=== PATIENT | female | born 1985 | race Caucasian/White ===

== ENCOUNTER 2017-03-14 23:35 | Emergency (ER) | payer OTHER ==
[2017-03-15 00:36] LABS: BASOPHILS % (AUTO) 1 % (0-3); EOSINOPHILS % (AUTO) 1 % (0-9); HEMATOCRIT 40 % (35-47); MEAN CORPUSCULAR VOLUME 86 fL (81-99); MONOCYTES % (AUTO) 6.2 % (0-12); NEUTROPHILS % (AUTO) 56.8 % (37-80)
[2017-03-15 00:47] VITALS: TEMP 96.4
[2017-03-15 00:56] LABS: ALBUMIN 3.6 gm/dl (3.4-5.0); ALT 21 IU/L (14-63); GLOM FILT RATE 71 mL/min (>60); POTASSIUM 3.4 mMol/L (3.5-5.1); SODIUM 140 mMol/L (136-145)
[2017-03-15] MEDS ORDERED: ALPRAZOLAM 0.25 MG TAB ONE (01:41)
[2017-03-15] MEDS ORDERED: ALPRAZOLAM 0.25 MG TAB PO SCH (01:45)
[2017-03-15 02:18] VITALS: O2SAT 99
[2017-03-15 02:21] VITALS: BP 127/83; PULSE 77; RESP 17
== END 2017-03-15 01:49 | disposition home or self-care (01) | DRG 310 ==
LOC: ED 23:35
DX: R00.2 Palpitations (principal); I44.7 Left bundle-branch block, unspecified; I49.3 Ventricular premature depolarization
CPT/HCPCS: 36415; 80053; 82550; 84484; 85025; 99284

== ENCOUNTER 2017-06-11 16:05 | Emergency (ER) | payer OTHER ==
[2017-06-11] MEDS ORDERED: SODIUM CHLORIDE 0.9% 1000 ML SOL IV SCH (16:15)
[2017-06-11 16:21] VITALS: TEMP 98.4
[2017-06-11 16:38] LABS: CALCIUM 9.1 mg/dl (8.5-10.1); GLOM FILT RATE 92 mL/min (>60); POTASSIUM 3.7 mMol/L (3.5-5.1); SODIUM 140 mMol/L (136-145); THYROID STIMULATING HORMONE 1.332 uIU/ml (0.358-3.740)
[2017-06-11] MEDS ORDERED: LORAZEPAM 0.5 MG TAB PO ONE (17:03)
[2017-06-11] MEDS ORDERED: LORAZEPAM 0.5 MG TAB ONE (17:05)
[2017-06-11 20:41] VITALS: BP 117/81; PULSE 66; RESP 17; O2SAT 98
== END 2017-06-11 20:32 | disposition home or self-care (01) | DRG 310 ==
LOC: ED 16:05
DX: R00.2 Palpitations (principal); R07.9 Chest pain, unspecified
CPT/HCPCS: 36415; 80048; 83735; 84100; 84443; 84484; 93005; 99283

== ENCOUNTER 2018-07-15 15:14 | Emergency (ER) | payer OTHER ==
[2018-07-15 15:30] VITALS: TEMP 97.4
[2018-07-15] MEDS ORDERED: SODIUM CHLORIDE 0.9% 1000ML 1,000 ML IV ONE (16:00)
[2018-07-15 16:17] LABS: BASOPHILS % (AUTO) 0 % (0-3); EOSINOPHILS % (AUTO) 0 % (0-9); HEMATOCRIT 42 % (35-47); HEMOGLOBIN 13.9 gm/dl (12.0-15.5); LYMPHOCYTES % (AUTO) 9.3 % (10-50); MEAN CORPUSCULAR HEMOGLOBIN 29.6 pg (27.0-32.0); MEAN CORPUSCULAR HGB CONC 33.2 gm/dl (32.0-36.0); MEAN CORPUSCULAR VOLUME 89 fL (81-99); MONOCYTES % (AUTO) 4.5 % (0-12); NEUTROPHILS % (AUTO) 85.8 % (37-80)
[2018-07-15 16:31] LABS: ALBUMIN 3.7 gm/dl (3.4-5.0); BILIRUBIN,TOTAL 0.3 mg/dl (0.2-1.0); CALCIUM 9.1 mg/dl (8.5-10.1); CARBON DIOXIDE 30.8 mEq/L (21-32); CREATININE 0.9 mg/dl (0.60-1.00); POTASSIUM 3.8 mMol/L (3.5-5.1); TOTAL PROTEIN 6.8 gm/dl (6.4-8.2)
[2018-07-15 19:17] VITALS: BP 108/78; PULSE 72; RESP 23; O2SAT 95
== END 2018-07-15 17:42 | disposition home or self-care (01) | DRG 310 ==
LOC: ED 15:14
DX: R00.2 Palpitations (principal); R42 Dizziness and giddiness
CPT/HCPCS: 80053; 85025; 93005; 96365; 99283; 99284

== ENCOUNTER 2018-09-05 13:04 | Day surgery (SDC) | payer OTHER ==
[2018-09-05 13:24] VITALS: TEMP 98
[2018-09-05] MEDS ORDERED: BUPIVACAINE HCL 0.5% MPF 10 ML SOL ONE (13:27)
[2018-09-05] MEDS ORDERED: LIDOCAINE HCL 1% MPF 30 SOL ONE (13:27)
[2018-09-05 13:52] VITALS: PULSE 58
[2018-09-05 14:00] VITALS: BP 113/75; RESP 20; O2SAT 96
== END 2018-09-05 14:19 | disposition home or self-care (01) | DRG 554 ==
LOC: SURG 13:04
PROVIDERS: ATTEND Nurse Anesthetist, Certified Registered
DX: M12.88 Other specific arthropathies, not elsewhere classified, other specified site (principal)
CPT/HCPCS: J2001

== ENCOUNTER 2018-09-27 07:42 | Day surgery (SDC) | payer OTHER ==
[2018-09-27] MEDS ORDERED: LIDOCAINE HCL 2% MPF 10 ML SOL ONE (08:14)
[2018-09-27] MEDS ORDERED: LIDOCAINE HCL 1% MPF 30 SOL ONE (08:14)
[2018-09-27 08:42] VITALS: PULSE 60
[2018-09-27 08:59] VITALS: BP 102/75; RESP 18; TEMP 97.4; O2SAT 98
== END 2018-09-27 09:13 | disposition home or self-care (01) | DRG 554 ==
LOC: SURG 07:42
PROVIDERS: ATTEND Nurse Anesthetist, Certified Registered
DX: M12.88 Other specific arthropathies, not elsewhere classified, other specified site (principal)
CPT/HCPCS: J2001